=== PATIENT | female | born 1950 | race Caucasian/White ===

== ENCOUNTER → 2017-03-22 | Outpatient (CLI) | payer OTHER ==
[~2017-03-22] MED LIST: ALPH300C PO; CITALOPRAM PO; CLARITHROMYCIN PO; GLUCOSAMINE PO; HYDR-3419 PO; MELOXICAM PO; METOPROLOL PO; MINOCYCLINE PO; TRIA37.5 PO; VTMD1000 PO
--- NOTE | 2017-03-23 16:02 | MAMMOGRAPHY REPORT ---
BILATERAL DIGITAL SCREENING MAMMOGRAM WITH CAD: 03/22/2017 CLINICAL HISTORY: Routine screening. Patient has no complaints. TECHNIQUE: Bilateral CC and MLO views were obtained. Current study was also evaluated with a Comput er Aided Detection (CAD) system. COMPARISON: Comparison is made to exams dated: 03/18/2016 mammogram, 02/13/2015 mammogram - [facility], 07/26/2013 mammogram, 02/24/2012 mammogram, 01/18/2011 mammogram, and 12/11/2009 [facility] mogram. BREAST COMPOSITION: There are scattered areas of fibroglandular density in both breasts. FINDINGS: There is a possible area of architectural distortion in the lateral, middle one third of t he left breast, best seen on the CC view but thought to project superiorly on the MLO view, for which additional spot compression tomosynthesis views and possibly ultrasound are recommended. There are diffuse bilateral benign-appearing round and punctate microcalcifications. No other suspici ous mass, architectural distortion or cluster of microcalcifications is seen. IMPRESSION: ACR BI-RADS CATEGORY 0: INCOMPLETE EVALUATION: NEED ADDITIONAL IMAGING EVALUATION The possible architectural distortion in the lateral left breast needs additional evaluation. The patient will be called to schedule an appointment. Approximately 10% of breast cancers are not detected with mammography. A negative mammographic report should not delay biopsy if a clinically suggestive mass is present. Mayela Ovalles M.D. ay/:03/22/2017 16:30:43 Textile Knitter: Chelsea DOMINGUEZ(Marques)(Tameka), [facility] letter sent: Addl Imaging 0 BI-RADS Code: ACR BI-RADS Category 0: Incomplete Evaluation: Need Additional Imaging Evaluation
== END | disposition home or self-care (01) ==
LOC: C.MAMM 09:59
PROVIDERS: ATTEND Nurse Practitioner
DX: Z12.31 Encounter for screening mammogram for malignant neoplasm of breast (principal)

== ENCOUNTER → 2017-04-05 | Outpatient (CLI) | payer OTHER ==
--- NOTE | 2017-04-05 16:43 | MAMMOGRAPHY REPORT ---
UNILATERAL LEFT DIGITAL DIAGNOSTIC MAMMOGRAM TOMOSYNTHESIS AND TARGETED LEFT ULTRASOUND: 04/05/2017 CLINICAL HISTORY: 66-year-old woman called back from screening mammography for possible architectural distortion in the lateral left breast. TECHNIQUE: Spot compression left CC and MLO 2-D and tomosynthesis images were obtained. COMPARISON: Comparison is made to exams dated: 03/22/2017 mammogram, 03/18/2016 mammogram, 02/13/2015 [facility], 07/26/2013 mammogram, 02/24/2012 mammogram, and 01/18/2011 [facility] mogram. BREAST COMPOSITION: There are scattered areas of fibroglandular density in the left breast. FINDINGS: There are multiple round and oval circumscribed masses scattered throughout the left breast . The circumscribed borders are best appreciated on the tomosynthesis images. There are diffuse marbyeth ign appearing left breast microcalcifications. The possible area of architectural distortion does no t definitely persist on the tomosynthesis images. No other areas of architectural distortion or spic ulated or irregular mass is seen. Targeted ultrasound was performed without the lateral left breast. Numerous benign anechoic cysts an d benign-appearing solid masses are identified. In particular, there is a round isoechoic solid-appe aring mass in the 12:00 periareolar left breast measuring 6.1 x 5.4 x 5.6 mm. A tiny round circumscr ibed isoechoic solid-appearing mass and adjacent anechoic cyst in the 1:00 left breast, 1 cm from the nipple measures 2.5 x 2.5 x 2.9 mm. A parallel oval circumscribed hypoechoic solid versus cystic ma ss in the 3:00 left breast, 2 cm from the nipple measures 5.7 x 5.0 x 7.2 mm. An anechoic oval paral lel cyst is seen deep to this indeterminate solid versus cystic mass in the 3:00 left breast, 2 cm fr om the nipple, measuring 5.4 mm. A benign anechoic simple cyst in the 2:00 left breast 1 cm from the nipple measures 6.7 mm. A larger anechoic cyst in the 6:00 left breast, 2 cm from the nipple measur es 11 mm. 2 oval parallel circumscribed hypoechoic solid-appearing masses in the 5:00 left breast, 2 cm from the nipple measure 9.9 x 4.4 x 8.3 mm, and 3.7 x 3.3 mm. There is no architectural distorti on appreciated in real-time scanning. No ill-defined taller than wide hypoechoic shadowing mass is i dentified. IMPRESSION: ACR-BI-RADS CATEGORY 3: PROBABLY BENIGN, TARGETED ULTRASOUND ACR-BI-RADS CATEGORY 3: PRO BABLY BENIGN 1. There is effacement of the possible architectural distortion in the lateral left breast with ashley tional supplemental mammogram and tomosynthesis images. No evidence of architectural distortion or a hypoechoic shadowing mass on ultrasound. This finding is probably benign but a short interval follo w-up left diagnostic mammogram including tomosynthesis images is recommended to ensure stability in 6 months. 2. Multiple cysts and benign-appearing solid masses are identified in the lateral left breast on ult rasound. Although all of the masses had appeared stable mammographically or decreased in size compar ed to prior mammograms, given that they are solid and newly visualized on ultrasound, a short interva l follow-up left breast ultrasound is recommended to ensure stability in 6 months. These results and recommendations were discussed with the patient at the time of the exam. Approximately 10% of breast cancers are not detected with mammography. A negative mammographic report should not delay biopsy if a clinically suggestive mass is present. Mayela Ovalles M.D. ay/:04/05/2017 14:32:12 Parking Patroller: Layne DALY)(Tameka), [facility] letter sent: Follow Up Recommended 3 BI-RADS Code: ACR-BI-RADS Category 3: Probably Benign Ultrasound BI-RADS: ACR-BI-RADS Category 3: Pr obably Benign
== END | disposition home or self-care (01) ==
LOC: C.MAMM 10:31
PROVIDERS: ATTEND Nurse Practitioner
DX: R92.8 Other abnormal and inconclusive findings on diagnostic imaging of breast (principal); N63 Unspecified lump in breast; N60.02 Solitary cyst of left breast

== ENCOUNTER → 2017-10-13 | Outpatient (CLI) | payer OTHER ==
--- NOTE | 2017-10-13 15:17 | MAMMOGRAPHY REPORT ---
UNILATERAL LEFT DIGITAL DIAGNOSTIC MAMMOGRAM TOMOSYNTHESIS WITH CAD AND TARGETED LEFT ULTRASOUND: 09/29 CLINICAL HISTORY: Short interval follow-up of left breast masses. The patient reports no new palpabl e lumps or other complaints. TECHNIQUE: Breast tomosynthesis in addition to standard 2D mammography was performed. Current study was also evaluated with a Computer Aided Detection (CAD) system. Left CC and MLO 2D and tomosynthesi s images and spot compression left cc tomosynthesis images were obtained. COMPARISON: Comparison is made to exams dated: 04/05/2017 ultrasound, 04/05/2017 mammogram, 03/22/2017 ma mmogram, 03/18/2016 mammogram, 02/13/2015 mammogram - [facility], and 07/26/2013 mamm ogram. BREAST COMPOSITION: There are scattered areas of fibroglandular density in the left breast. FINDINGS: There has been no significant interval change mammographically compared to prior exams. Th ere are numerous circumscribed benign-appearing masses seen throughout the left breast, some of which have fluctuated compared to prior mammograms. Scattered benign-appearing calcifications are also st able. There is an area of questionable architectural distortion seen within the left medial breast m iddle depth on the cc view which effaces on the spot compression view and is compatible with normal f ibroglandular tissue. There are no suspicious masses, calcifications, or areas of architectural dist ortion noted within the left breast. Targeted ultrasound was performed of the area of the previously seen left breast masses for which fol low-up was recommended. In the left 12:00 periareolar breast, again noted is a round partially anech oic and partially isoechoic circumscribed 7 x 5 x 6 mm mass, not significantly changed and likely rep resents a complicated cyst versus a benign solid mass. Numerous cysts are seen throughout the left l ateral breast during the exam. A small round circumscribed benign-appearing 3 mm hypoechoic mass in the left 1:00 breast, 1 cm from the nipple, is also stable. A circumscribed lobulated anechoic mass with a thin internal septation measuring 8 mm is seen within the left 3:00 breast, 4 cm from the nipp le, which is not significantly changed compared to the prior exam when accounting for differences in measurement technique and is most compatible with a cyst. Another anechoic cyst is seen within the l eft 3:00 breast, 2 cm from the nipple, measuring 4 x 4 mm. Multiple cysts are also seen within the l eft 5:00 breast. Given the presence of multiple circumscribed benign-appearing masses, the findings are considered benign. IMPRESSION: ACR BI-RADS CATEGORY 2: BENIGN, TARGETED ULTRASOUND ACR BI-RADS CATEGORY 2: BENIGN There is no mammographic or targeted sonographic evidence of malignancy. Return to annual mammogram s creening schedule is recommended, due March 2018. The patient has been verbally notified of the res ults. Approximately 10% of breast cancers are not detected with mammography. A negative mammographic report should not delay biopsy if a clinically suggestive mass is present. Aubrie Bailey M.D. ah/:10/13/2017 11:53:43 Manufacturing Technologist: Rosa DALY)(Tameka), [facility] letter sent: Normal 1/2 BI-RADS Code: ACR BI-RADS Category 2: Benign Ultrasound BI-RADS: ACR BI-RADS Category 2: Benign
== END | disposition home or self-care (01) ==
LOC: C.MAMM 11:17
PROVIDERS: ATTEND Nurse Practitioner
DX: R92.2 Inconclusive mammogram (principal)